=== PATIENT | female | born 1945 | race Caucasian/White ===

== ENCOUNTER 2022-08-17 10:33 | Outpatient (CLI) | payer MEDICARE, BC, SELFPAY ==
[2022-08-17 10:56] VITALS: BP 132/71; PULSE 71; RESP 16; O2SAT 95
[2022-08-17] MEDS: TETRACAINE 0.5% OPHTH 1 DROP EYE-BOTH ×3 (11:02→11:34)
[2022-08-17] MEDS: BRIMONIDINE TARTRATE 0.2% OPHTH 1 DROP EYE-BOTH (11:02)
--- NOTE | 2022-08-17 11:57 | P.OPTPRC_ITS ---
Procedure Note Date of procedure: 08/17/22 Will [facility] bill your pro fee for this procedure?: Yes Procedure Description: SURGEON: Amy Parnell MD PREOPERATIVE DIAGNOSIS: Posterior capsular opacity, right and left eye POSTOPERATIVE DIAGNOSIS: Posterior capsular opacity, right and left eye PROCEDURE: YAG laser capsulotomy, both eyes ANESTHESIA: Topical. ESTIMATED BLOOD LOSS: None PATHOLOGY SPECIMEN: None COMPLICATIONS: None INDICATIONS: See consult note for details. The risks, benefits and alternatives of the procedure were explained to the patient, who elected to proceed and signed informed consent to do so. PROCEDURE: The patient was brought to the pre-holding area where the right and left eyes were identified as the operative eyes. I placed my initials above the eyes. The following was given in both eyes: The patient received 2 sets of 1 drop of 0.5% tetracaine and 1 drop of 1% tropicamide. They also received 1 drop of 0.2% brimonidine. They received 1 drop of 0.5% tetracaine immediately prior to bringing them back for the procedure. The patient was then brought to the procedure room where the right and left eyes were again identified as the operative eyes. A YAG Mina capsulotomy lens was placed on the right eye. The laser was administered using a total number of 35 shots with an energy of 2.4 mJ per shot for a total energy of 84 mJ. The patient tolerated the procedure well. A YAG Mina capsulotomy lens was placed on the left eye. The laser was administered using a total number of 19 shots with an energy of 2.4 mJ per shot for a total energy of 46 mJ. The patient tolerated the procedure well. DISPOSITION: The patient was taken back to the pre-holding area and given 1 drop of 0.2% brimonidine in both eyes. They were discharged to home in stable condition. The patient was instructed to call me or go to the emergency department with any sudden change, including dramatic loss of vision, severe pain in the eye or eyebrow region, nausea, or vomiting. The patient was instructed to use the 0.2% brimonidine 1 drop 2 times a day in both eyes for 1 week. The patient will follow up in the clinic in 1-2 weeks. Surgeon: Amy Parnell MD
== END 2022-08-17 10:34 | disposition home or self-care (01) ==
PROVIDERS: PCP Student in an Organized Health Care Education/Training Program; Visit Provider Ophthalmology
DX: H26.9 Unspecified cataract (principal)
CPT/HCPCS: 66821; A9270

== ENCOUNTER 2023-05-28 10:04 | Emergency (ER) | payer MEDICARE, BC, SELFPAY ==
[2023-05-28 10:17] VITALS: BP 127/85; PULSE 93; RESP 30; TEMP 36.5; O2SAT 97; BMI 27.4
--- NOTE | 2023-05-28 10:42 | CRLHL7_ITS ---
For Patients: As a result of the Century Cures Act, medical imaging exams and procedure reports are released immediately into your electronic medical record. You may view this report before your referring provider. If you have questions, please contact your health care provider. INDICATION: Right lower quadrant abdominal pain. TECHNIQUE: Multiple axial images were obtained from the diaphragm to symphysis pubis after administration of 71 mL of Isovue-370 intravenously. Sagittal coronal re-formatted images were obtained. Comparison: None. Findings: There is scarring in the lung bases. There is no focal liver lesion. The spleen, pancreas, gallbladder and adrenal glands are unremarkable. There is no mass or hydronephrosis in the kidneys. The prominent right extrarenal pelvis. There is no evidence of a bowel obstruction. The cecum is in the left mid abdomen. The abdominal aorta is normal in caliber. There are atherosclerotic calcifications. There is no adenopathy. There is no free fluid in the attic or pelvis. There are phleboliths in the pelvis. There are degenerative changes in the spine. There is grade 1 spondylolysis L4 on L5. IMPRESSION: No acute abnormality on CT scan abdomen and pelvis with contrast. Please note that all CT scans at this facility use dose modulation, iterative reconstruction, and/or weight-based dosing when appropriate to reduce radiation dose to as low as reasonably achievable. Dictated by Cornell Mota MD @ 05/28/2023 1:11:20 PM (Electronically Signed)
--- NOTE | 2023-05-28 10:44 | ED.ABDPAIN ---
HPI - Abdominal Pain General Chief Complaint: Abdominal Pain Stated Complaint: nausea, stomach pain Time Seen by Provider: 05/28/23 10:26 History of Present Illness HPI narrative: This 77-year-old female comes in reporting severe abdominal pain that began 3 days ago. She states the pain is constant and has been worsening. She reports pain in her right abdomen that seems to be more located in the right lower quadrant. She reports nausea with some vomiting and diarrhea. She does not report any fevers. She has decreased appetite. She appears to be in distress and is breathing faster than normal because of pain. She is asking for pain medicine. Related Data Previous Rx's Medication Instructions Recorded cephalexin 500 mg capsule 500 mg PO TID 3 days #9 caps 05/28/23 Allergies Allergy/AdvReac Type Severity Reaction Status Date / Time atorvastatin [From Lipitor] Allergy Muscle Pain Verified 08/17/22 11:10 Iodinated Contrast Media Allergy Verified 05/28/23 11:08 Review of Systems Status of ROS Reports: 10 or more systems reviewed and unremarkable except as noted in History and below Narrative Constitutional: No fevers, no weight gain or loss. Eyes: No discharge. No vision changes. HENT: No congestion, no sore throat, no ear pain. Cardiovascular: No chest pain, no palpitations. Respiratory: No shortness of breath, no wheezes, no cough. Gastrointestinal: Abdominal pain with vomiting and diarrhea as described above. Genitourinary: No dysuria, no hematuria. Musculoskeletal: Normal range of motion. Skin: No rashes, no pruritis. Neurological: No dizziness, weakness, sensory change, speech change. Endo/Heme/Allergies: No bruising or bleeding. No polydipsia. Pysch: no suicidality, no anxiety, no insomnia. All other systems reviewed and are negative. [facility] Social History Smoking Status: Never smoker Do you use any of these nicotine containing products: None Second hand tobacco smoke exposure: No How often do you have a drink containing alcohol: never How often do you have six or more drinks on one occasion: Never AUDIT-C Alcohol total score: 0 Non-prescribed substance use: denies use service: No Exam Narrative: Exam Narrative: Constitutional: Well-developed, well-nourished. HEENT: Normocephalic, atraumatic. Neck: Normal range of motion. Nontender. Supple. Heart: Regular. No murmurs. Normal rate. Intact distal pulses. Lungs: Clear to auscultation. No chest discomfort. No wheezes, rhonchi, or rales. Abdomen: Normal bowel sounds. Diffuse tenderness in the right abdomen. No rebound tenderness. Genitalia: Deferred. Back: No midline tenderness. Normal range of motion. Extremities: Normal range of motion. No injury. Skin: Intact. No rash. Warm. No erythema or pallor. Neurologic: No altered sensation. No weakness. Alert and oriented. Psychiatric: No suicidality. No anxiety or depression. No insomnia. Nursing notes and vitals signs are reviewed. Const: Vital Signs, click to edit/add: Vital Signs - 24 hr 05/28/23 10:17 Temperature 97.7 F Pulse Rate [Pulse Oximeter] 93 Respiratory Rate 30 H Blood Pressure [Ri ght Upper Arm] 127/85 Pulse Oximetry 97 Oxygen Delivery Me thod Room Air Course Vital Signs Vital signs: Initial Vital Signs Temperature 97.7 F 05/28/23 10:17 Temperature Source Temporal Artery Scan 05/28/23 10:17 Pulse Rate 93 05/28/23 10:17 Pulse Rhythm Irregular 05/28/23 10:17 Respiratory Rate 30 H 05/28/23 10:17 Blood Pressure 127/85 05/28/23 10:17 Blood Pressure Mean 99 05/28/23 10:17 Blood Pressure Position Supine 05/28/23 10:17 Pulse Oximetry 97 05/28/23 10:17 Oxygen Delivery Method Room Air 05/28/23 10:17 Vital Signs Temperature 97.7 F 05/28/23 10:17 Pulse Rate 93 05/28/23 10:17 Respiratory Rate 30 H 05/28/23 10:17 Blood Pressure 127/85 05/28/23 10:17 Pulse Oximetry 97 05/28/23 10:17 Oxygen Delivery Method Room Air 05/28/23 10:17 Temperature 97.7 F 05/28/23 10:17 Pulse Rate 93 05/28/23 10:17 Respiratory Rate 30 H 05/28/23 10:17 Blood Pressure 127/85 05/28/23 10:17 Pulse Oximetry 97 05/28/23 10:17 Oxygen Delivery Method Room Air 05/28/23 10:17 MDM - Abdominal Pain MDM Narrative Medical decision making narrative: This patient comes in with severe abdominal pain as described above. She does have a history of fibromyalgia and recurrent and chronic joint aches and pains. She has had abdominal pain also in the past. She arrives with normal vital signs but is hyperventilating because of pain. An IV was established where she did receive Zofran 4 mg and Dilaudid 0.3 mg. This brought some relief to her pain temporarily. She did receive another dose of Dilaudid 0.3 mg prior to discharge. Labs are acquired and these returned with reassuring findings. Her urinalysis does show 5-10 white blood cells per high-powered field and similar 5-10 red blood cells per high-powered field. I am not sure that this is infection but I did prescribe [address] imaging of the abdomen pelvis also is returning with no acute findings. This patient is okay to be discharged home and received prescriptions from [facility] for Keflex, few tablets of [place], and Zofran. Lab Data Labs: Lab Results 05/28/23 05/28/23 Range/Units 10:40 11:05 WBC 6.52 (4.50-11.00) K/uL RBC 4.17 (4.00-5.20) m/uL Hgb 13.3 (12.0-16.0) gm/dL Hct 40.8 (33.0-51.0) % MCV 98 (80-100) fL MCH 32 (26-34) pg MCHC 33 (32-36) gm/dL RDW Coeff of [place]resh 15.2 (11.5-15.5) % Plt Count 303 (140-440) K/uL Neut % (Auto) 67.2 (42.0-72.0) % Lymph % (Auto) 19.2 L (20-44) % [place] % (Auto) 12.1 H (0.0-11.0) % Eos % (Auto) 1.2 (0.0-7.0) % Baso % (Auto) 0.3 (0.0-3.0) % Neut # (Auto) 4.38 (1.7-7.0) K/uL Lymph # (Auto) 1.30 (0.90-2.90) K/uL [place] # (Auto) 0.80 (0.00-0.90) K/UL Eos # (Auto) 0.08 (0.00-0.50) K/uL Baso # (Auto) 0.02 (0.00-0.30) K/uL Abs Immat Gran (auto) 0.00 (0.00-0.30) K/uL Imm/Tot Granulo (auto) 0.0 % Sodium 136 (135-149) mmol/L Potassium 3.9 (3.6-5.1) mmol/L Chloride 100 (96-114) mmol/L Carbon Dioxide 19 L (20-32) mmol/L Anion Gap 17 H (7-15) mEq/L BUN 10 (7-30) mg/dL Creatinine 0.8 (0.5-1.5) mg/dL Estimated Creat Clear 34.99 Estimated GFR 75 ml/min Glucose 134 H (60-115) mg/dL Calcium 10.4 (8.4-10.6) mg/dL Total Bilirubin 0.7 (0.1-1.5) mg/dL Direct Bilirubin 0.0 (0.0-0.5) mg/dL AST 39 H (12-35) U/L ALT 21 (4-35) U/L Alkaline Phosphatase 68 (40-150) U/L C-Reactive Protein 0.8 (0.5-1.0) mg/dL Total Protein 7.7 (6.0-8.3) g/dL Albumin 4.7 (3.3-5.0) g/dL Lipase 120 (23-300) U/L Urine Color Yellow (Yellow) Urine Appearance Slightly Cloudy A (Clear) Urine pH 6.0 (5.0-8.5) Ur Specific [place] 1.020 (1.000-1.030) Urine Protein 1+ A (Negative) Urine Glucose (UA) Negative (Negative) Urine Ketones 1+ A (Negative) Urine Blood 1+ A (Negative) Urine Nitrite Negative (Negative) Urine Bilirubin 1+ A (Negative) Urine Urobilinogen 0.2 (0.2-1.0) Ur Leukocyte Esterase 1+ A (Negative) Urine RBC 5-10 A (0-2) Urine WBC 5-10 A (0-5) Ur Squamous Epith Cells Moderate A (None-Few) Urine Bacteria Few A (None) Urine Mucus Moderate A (None) Imaging Data CT scan - abdomen: Radiologist's impression: No acute abnormality on CT scan abdomen and pelvis with contrast. Discharge Plan Discharge Clinical Impression: Urinary tract infection, Abdominal pain Patient Disposition: Home, Self-Care Condition: Improved Additional Instructions: Take medication as prescribed. Increase diet as tolerated. Follow up with MD return if worsening symptoms happen. Prescriptions: New cephalexin 500 mg capsule 500 mg PO TID 3 Days Qty: 9 0RF Follow Up/Referrals: Thiago Norton MD [Primary Care Provider] - Stand Alone Forms: [place] [employer] Info Instructions
[2023-05-28 10:53] LABS: Basophils Absolute Auto 0.02 K/uL (0.00-0.30); Basophils Percent Auto 0.3 % (0.0-3.0); Eosinophils Absolute Auto 0.08 K/uL (0.00-0.50); Eosinophils Percent Auto 1.2 % (0.0-7.0); Hematocrit 40.8 % (33.0-51.0); Hemoglobin* 13.3 gm/dL (12.0-16.0); Lymphocytes Percent Auto 19.2 % (20-44); Mean Corpuscular HGB Conc 33 gm/dL (32-36); Mean Corpuscular Hemoglobin 32 pg (26-34); Mean Corpuscular Volume 98 fL (80-100); Monocytes Percent Auto 12.1 % (0.0-11.0); Neutrophils Absolute Auto 4.38 K/uL (1.7-7.0); Neutrophils Percent Auto 67.2 % (42.0-72.0); Platelet Count* 303 K/uL (140-440); RDW Coefficient of Variation % 15.2 % (11.5-15.5); Red Blood Count 4.17 m/uL (4.00-5.20); White Blood Count* 6.52 K/uL (4.50-11.00)
--- NOTE | 2023-05-28 10:53 | ED.NURSE ---
Report received from AMPARO Rod.
[2023-05-28 11:01] LABS: Slide Review Reflex No
[2023-05-28] MEDS: ONDANSETRON 2 MG/ML inj 4 MG IVP (11:09)
[2023-05-28] MEDS: HYDROmorphone 0.5 mg/0.5 ml inj 0.3 MG IVP ×2 (11:09→12:47)
[2023-05-28] MEDS: 0.9 % SODIUM CHLORIDE 1000 ml 1,000 ML IV (11:10)
[2023-05-28 11:16] LABS: Chloride* 100 mmol/L (96-114); Potassium* 3.9 mmol/L (3.6-5.1); Sodium* 136 mmol/L (135-149)
[2023-05-28 11:17] LABS: Albumin* 4.7 g/dL (3.3-5.0)
[2023-05-28 11:19] LABS: Anion Gap 17 mEq/L (7-15); Blood Urea Nitrogen* 10 mg/dL (7-30); Carbon Dioxide* 19 mmol/L (20-32); Creatinine* 0.8 mg/dL (0.5-1.5); Est. Creatinine Clearance* 34.99; Estimated Glomerular Filt Rate 75 ml/min; Glucose* 134 mg/dL (60-115)
[2023-05-28 11:20] LABS: Alanine Aminotransferase* 21 U/L (4-35); Alkaline Phosphatase* 68 U/L (40-150); Aspartate Amino Transferase* 39 U/L (12-35); Bilirubin Total* 0.7 mg/dL (0.1-1.5); Calcium* 10.4 mg/dL (8.4-10.6); Lipase* 120 U/L (23-300); Total Protein* 7.7 g/dL (6.0-8.3)
[2023-05-28 11:21] LABS: Appearance Urine Slightly Cloudy (Clear); Bilirubin Urine 1+ (Negative); Blood Urine 1+ (Negative); Color Urine Yellow (Yellow); Glucose Urine Negative (Negative); Ketones Urine 1+ (Negative); Leukocyte Esterase Urine 1+ (Negative); Nitrite Urine Negative (Negative); Protein Urine 1+ (Negative); Urobilinogen Urine 0.2 (0.2-1.0)
[2023-05-28 11:23] LABS: C Reactive Protein* 0.8 mg/dL (0.5-1.0)
[2023-05-28 11:45] LABS: Bacteria Urine Few; Mucus Urine Moderate; Squamous Epithelial Cell Urine Moderate (None-Few)
[2023-05-28 12:58] VITALS: PULSE 78; O2SAT 95
[2023-05-28 13:02] VITALS: BP 133/74; PULSE 80; RESP 12; O2SAT 94
[2023-05-28 13:31] VITALS: BP 117/77; PULSE 80; RESP 14; O2SAT 98
[2023-05-28 13:45] VITALS: PULSE 80; O2SAT 99
--- NOTE | 2023-05-28 14:05 | ED.NURSE ---
Meghann called into [facility] [place] [facility] called to cancel rx and left voicemail.
== END 2023-05-28 14:05 | disposition home or self-care (01) ==
PROVIDERS: Emergency Provider Emergency Medicine Emergency Medical Services; PCP Student in an Organized Health Care Education/Training Program
DX: N39.0 Urinary tract infection, site not specified (principal); R10.9 Unspecified abdominal pain
CPT/HCPCS: 36415; 74177; 80048; 80076; 81001; 83690; 85025; 86140; 87086; 87186; 96361; 96374; 96375; 96376; 99284; 99285; J1170; J2405; J7030; Q9967

== ENCOUNTER 2023-11-27 14:00 | Outpatient (RCR) | payer MEDICARE, SELFPAY | END 2024-03-26 23:59 | disposition home or self-care (01) | PROVIDERS: PCP Student in an Organized Health Care Education/Training Program; Visit Provider Family Medicine | DX: M17.11 Unilateral primary osteoarthritis, right knee (principal); M54.2 Cervicalgia; G89.29 Other chronic pain; M79.601 Pain in right arm; M79.602 Pain in left arm; M25.559 Pain in unspecified hip; M54.50 Low back pain, unspecified; M25.562 Pain in left knee; M25.561 Pain in right knee; R29.898 Other symptoms and signs involving the musculoskeletal system; M25.50 Pain in unspecified joint; Z51.89 Encounter for other specified aftercare | CPT/HCPCS: 97110; 97140; 97162 ==